=== PATIENT | female | born 1945 | race Caucasian/White ===

== ENCOUNTER 2017-04-28 08:11 | Emergency (ER) | payer MEDICARE ==
[~2017-04-28] VITALS: Ht 160 cm; Wt 88.8 kg
[2017-04-28 08:22] VITALS: BP 193/81; PULSE 69; RESP 18; TEMP 98.6; O2SAT 97
[2017-04-28] MEDS ORDERED: ZANT150T2 PO (08:28)
[2017-04-28] MEDS ORDERED: DIPH25CA PO (08:28)
[2017-04-28] MEDS ORDERED: PRED-503 PO (08:28)
--- NOTE | 2017-04-28 08:29 | PD ---
HPI Chief Complaint: rash Time Seen by Provider: 08:17 Travel History International Travel<30 days: No Contact w/Intl Traveler<30days: No Traveled to known affect area: No History of Present Illness HPI The patient is a 71-year-old female who presents to the emergency department for rash. The patient's currently on vacation from [place], stopped in [place] in route to [place]. The patient states she stayed with a family member in [place] department, she developed a rash that started on the posterior aspect the left shoulder. She now notes that it is moved up into the neck and down the left arm. The rash is not painful, it is pruritic, is described as red, elevated, and itching. She denies any systemic symptoms including fever, chills, sweats, body aches, myalgias, arthralgias, nausea, vomiting, or abdominal pain. She denies any recent change in medications or personal hygiene products including shampoo and soap. Symptoms are mild, there are no current alleviating or exacerbating factors. PFSH Past Medical History Narrative Medical Diabetes, hyperlipidemia Past Surgical History Narrative Surgical section 3, appendectomy Social History Tobacco Use: No Allergies-Medications (Allergen,Severity, Reaction): Coded Allergies: aspirin (Verified Allergy, Mild, 04/28/17) GI Upset Review of Systems Except as stated in HPI: all other systems reviewed are Neg General / Constitutional: No: Fever Gastrointestinal: No: Nausea, Vomiting, Abdominal Pain Musculoskeletal: No: Myalgias, Arthralgias, Edema Skin: Positive Rash, Positive Itching Physical Exam Narrative GENERAL: Awake, alert, pleasant 71-year-old female who appears her stated age and is in no acute respiratory distress. SKIN: Focused skin assessment warm/dry. Patient has an elevated erythematous blanching area on the left scapula area that measures 4 cm x 3 cm. She has a few smaller erythematous, elevated areas are blanching on the neck as well as the left arm. No visible vesicles. No visible involvement of the palms of the hands. HEAD: Atraumatic. Normocephalic. EYES: Pupils equal and round. No scleral icterus. No injection or drainage. NECK: Trachea midline. No JVD. MUSCULOSKELETAL: No obvious deformities. No clubbing. No cyanosis. No edema. NEUROLOGICAL: Awake and alert. No obvious cranial nerve deficits. Motor grossly within normal limits. Normal speech. PSYCHIATRIC: Appropriate mood and affect; insight and judgment normal. Data Data Orders Orders Prednisone (Deltasone) (04/28/17 08:30) Diphenhydramine (Benadryl) (04/28/17 08:30) [facility] Medical Decision Making Medical Screen Exam Complete: Yes Emergency Medical Condition: Yes Medical Record Reviewed: Yes Differential Diagnosis Differential diagnosis includes dermatitis, urticaria, allergic reaction, insect bite, chigger bite, pityriasis rosea. Narrative Course The patient's rash appears to be erythematous, elevated, and blanching, is not in a normal pityriasis distribution. She denies changing any shampoos, lotions , or soaps. She also denies any new medications. Appears to be possible allergic reaction versus atypical insect exposure. The patient was placed on prednisone and Benadryl. She is advised to follow-up with her primary physician and return for any systemic symptoms. Diagnosis Primary Impression: Dermatitis Additional Instructions: Medications as directed. Follow-up with her primary physician. Return if symptoms worsen or progress. Med/Other Pt SpecificInfo: Prescription(s) given Scripts Diphenhydramine (Diphenhydramine) 25 Mg Cap 25 MG PO Q6H Y for ALLERGIES, #20 CAP 0 Refills Prov: Florin Santamaria MD 04/28/17 Ranitidine (Zantac) 150 Mg Tab 150 MG PO BID for Reduce Stomach Acid for 4 Days, #8 TAB 0 Refills Prov: Florin Santamaria MD 04/28/17 Prednisone (Deltasone) 20 Mg Tab 40 MG PO DAILY for 4 Days, #8 TAB 0 Refills Prov: Florin Santamaria MD 04/28/17 Disposition: 01 DISCHARGE HOME Condition: Stable Florin Santamaria MD Apr 28, 2017 08:29
[2017-04-28] MEDS ORDERED: predniSONE 20 MG TAB PO ONE (08:30)
[2017-04-28] MEDS ORDERED: diphenhydrAMINE HCL 25 MG CAP PO ONE (08:30)
[2017-04-28] MEDS ORDERED: OMEP20TA93 PO (08:32)
[2017-04-28] MEDS ORDERED: SIMV40TA PO (08:32)
[2017-04-28] MEDS ORDERED: METF500T PO (08:32)
== END 2017-04-28 09:00 | disposition home or self-care (01) ==
LOC: PHED 08:11
DX: L30.9 Dermatitis, unspecified (principal)
CPT/HCPCS: 99283; J7512